=== PATIENT | female | born 1965 | race African-American/Black ===

== ENCOUNTER 2024-05-16 17:22 | Inpatient (IN) | payer OTHER ==
[2024-05-16 18:15] VITALS: BMI 31.7
[2024-05-16] MEDS ORDERED: guaiFENesin 600 MG TABLET.ER (FP) PO PRN (18:51)
[2024-05-16] MEDS ORDERED: ACETAMINOPHEN 325 MG TABLET (FP) PO PRN (18:51)
[2024-05-16] MEDS ORDERED: BENZONATATE 200 MG CAPSULE PO PRN (18:51)
[2024-05-16] MEDS ORDERED: BENZOCAINE/MENTHOL (CHLORASEPTIC ) LOZENGE MM PRN (18:51)
[2024-05-16] MEDS ORDERED: IBUPROFEN 600 MG TABLET (FP) PO PRN (18:51)
[2024-05-16] MEDS ORDERED: hydrOXYzine PAMOATE 25 MG CAPSULE (FP) PO PRN (18:51)
[2024-05-16] MEDS ORDERED: IBUPROFEN 400 MG TABLET (FP) PO PRN (18:51)
[2024-05-16] MEDS ORDERED: LOPERAMIDE HCL 2 MG CAPSULE PO PRN (18:51)
[2024-05-16] MEDS ORDERED: P-EPHED 60MG/TRIPROLIDI 2.5MG TABLET PO PRN (18:51)
[2024-05-16] MEDS ORDERED: MAG HYDROX/AL HYDROX/SIMETH 30 ML UNIT-DOSE CUP PO PRN (18:51)
[2024-05-16] MEDS: THIAMINE 100 MG TABLET PO SCH (21:37)
[2024-05-16] MEDS: MELATONIN 5 MG TABLETS PO SCH (21:37)
[2024-05-16] MEDS: GABAPENTIN 300 MG CAPSULE PO SCH (21:37)
[2024-05-16] MEDS: TUBERCULIN PPD 5 TU/0.1ML SYRINGE (IN PATIENT USE ONLY) ID ONE (22:04)
[2024-05-16] MEDS: SODIUM BICARBONATE 650 MG TABLET PO SCH (22:26)
[2024-05-17] MEDS: LEVOTHYROXINE NA 50 MCG TABLET (FP) PO SCH (06:04)
[2024-05-17] MEDS: SEVELAMER CARBONATE 800 MG TAB (FP) PO SCH (07:19)
[2024-05-17] MEDS ORDERED: SEVELAMER CARBONATE 800 MG TAB (FP) PO SCH ×2 (10:00)
[2024-05-17] MEDS: PRENATAL VITAMINS W/ FOLIC ACID TABLET (FP) PO SCH (10:20)
[2024-05-17] MEDS: amLODIPine BESYLATE 10 MG TABLET (FP) PO SCH (10:20)
[2024-05-17 12:10] LABS: POTASSIUM 3.7 mmol/L (3.5-5.1)
[2024-05-17 12:14] LABS: HEMATOCRIT 27.1 % (32.4-45.2); MCH 29.3 pg (25.7-33.7); MCHC 33.2 g/dl (32.0-36.0); MEAN PLT VOLUME 9.8 fl (7.5-11.1); PLATELET COUNT 137 10^3/uL (134-434); RBC 3.08 M/mm3 (3.60-5.2); RDW 13.7 % (11.6-15.6); WHITE BLOOD COUNT 6.1 K/mm3 (4.0-10.0)
[2024-05-17 12:33] LABS: ALBUMIN 3.8 g/dl (3.4-5.0); CALCIUM 8.9 mg/dL (8.5-10.1)
[2024-05-17 12:35] LABS: BLOOD UREA NITROGEN 36.9 mg/dL (7-18)
[2024-05-17 12:37] LABS: CREATININE 4.4 mg/dL (0.55-1.3)
[2024-05-17 12:38] LABS: BILIRUBIN,TOTAL 0.3 mg/dL (0.2-1); TOT PROT 7.2 g/dl (6.4-8.2)
[2024-05-17 18:49] LABS: EPI CELLS 13 /uL (0-25.1); HYALINE CASTS 0 /uL (0-3.1); PH,URINE 6.5 (5.0-8.0); URINE APPEARANCE CLEAR; URINE BACTERIA 225 /uL (0-1359); URINE BILIRUBIN NEGATIVE (NEGATIVE); URINE COLOR YELLOW; URINE GLUCOSE (UA) TRACE (NEGATIVE); URINE KETONE NEGATIVE (NEGATIVE); URINE LEUK ESTERASE NEGATIVE (NEGATIVE); URINE NITRITE NEGATIVE (NEGATIVE); URINE PROTEIN 2+ (NEGATIVE); URINE RBC 2 /uL (0-23.9); URINE UROBILINOGEN 0.2 mg/dL (0.2-1.0); URINE WBC 18 /uL (0-25.8)
[2024-05-18] MEDS: MAGNESIUM HYDROX 2400MG/30ML ORAL SUSPENSION 30 ML CUP PO PRN (12:59)
[2024-05-19] MEDS: LEVOTHYROXINE NA 25 MCG TABLET (FP) PO SCH (06:01)
[2024-05-19] MEDS: POLYETHYLENE GLYCOL (HEALTHYLAX) 3350 17 GM PACKET PO PRN (18:44)
[2024-05-22] MEDS: DOCUSATE SODIUM 100 MG CAPSULE (FP) PO SCH (10:07)
[2024-05-23] MEDS: HYDROCORTISONE ACETATE 25 MG/SUPP.RECT RC SCH (13:13)
[2024-05-23] MEDS: HYDROCORTISONE 2.5% TOPICAL CREAM 30 GM TUBE TP SCH (15:59)
[2024-05-24] MEDS: NALTREXONE HCL 50 MG TABLET PO ONE (10:13)
[2024-05-24 13:33] LABS: INR 0.89 (0.83-1.09); PROTHROMBIN TIME (PATIENT) 10.3 SEC (9.7-13.0)
[2024-05-24 13:36] LABS: MAGNESIUM 2.8 mg/dL (1.8-2.4)
[2024-05-25] MEDS: NALTREXONE HCL 50 MG TABLET PO SCH (10:17)
[2024-05-25] MEDS: LACTULOSE 20 GM/30 ML UDC (FOR ORAL USE ONLY) PO SCH (10:18)
[2024-05-25] MEDS ORDERED: WITCH HAZEL 50% (TUCKS) 40 PAD/JAR PAD TP PRN (14:48)
[2024-05-25] MEDS: HYDROCORTISONE 2.5% TOPICAL CREAM 30 GM TUBE TP PRN (21:51)
[2024-05-25] MEDS: PHENYLEPHRINE HCL/COCOA BUTTER 1 EACH SUPP.RECT RC SCH (21:51)
[2024-05-30] MEDS: ACETAMINOPHEN 325 MG TABLET (FP) PO ONE (01:43)
[2024-05-30 14:22] LABS: CALCIUM 8.6 mg/dL (8.5-10.1)
[2024-05-30 14:23] LABS: ALBUMIN 3.8 g/dl (3.4-5.0); BLOOD UREA NITROGEN 35.4 mg/dL (7-18)
[2024-05-30 14:25] LABS: CREATININE 4.1 mg/dL (0.55-1.3)
[2024-05-30 14:26] LABS: TOT PROT 8.1 g/dl (6.4-8.2)
[2024-05-30 14:27] LABS: BILIRUBIN,TOTAL 0.5 mg/dL (0.2-1)
[2024-05-30] MEDS: LIDOCAINE 4% PATCH TP SCH (18:18)
[2024-05-30] MEDS: LIDOCAINE PATCH REMOVAL MC SCH (21:21)
[2024-05-30] MEDS: METHYL SALICYLATE/MENTHOL OINT 30 GM TUBE TP SCH (21:24)
[2024-06-01 20:17] LABS: POTASSIUM 4.3 mmol/L (3.5-5.1)
[2024-06-01 20:20] LABS: ALBUMIN 3.7 g/dl (3.4-5.0); BLOOD UREA NITROGEN 38.2 mg/dL (7-18)
[2024-06-01 20:23] LABS: CREATININE 4.5 mg/dL (0.55-1.3)
[2024-06-01 20:25] LABS: BILIRUBIN,TOTAL 0.4 mg/dL (0.2-1); TOT PROT 7.9 g/dl (6.4-8.2)
[2024-06-02] MEDS ORDERED: LEVOTHYROXINE NA 25 MCG TABLET (FP) PO SCH (09:20)
[2024-06-03] MEDS: LEVOTHYROXINE NA 25 MCG TABLET (FP) PO SCH (06:04)
[2024-06-05 06:40] VITALS: RESP 18
[2024-06-05] MEDS: NALTREXONE MICROSPHERES (VIVITROL) 380 MG DISP.SYRIN IM ONE (12:56)
[2024-06-06 07:17] VITALS: TEMP 97.7
[2024-06-06 09:43] VITALS: BP 150/72; PULSE 85
== END 2024-06-06 10:22 | disposition home or self-care (01) | DRG 895 ==
LOC: YASAS 17:22 → Y5N 19:21
PROVIDERS: ADMIT Allergy & Immunology; ATTEND Psychiatry & Neurology Pain Medicine
PROC: HZ42ZZZ Group Counseling for Substance Abuse Treatment, Cognitive-Behavioral (ICD-10-PCS; principal; 2024-05-16)
DX: F10.20 Alcohol dependence, uncomplicated (principal); F41.9 Anxiety disorder, unspecified; I10 Essential (primary) hypertension; I25.10 Atherosclerotic heart disease of native coronary artery without angina pectoris; N18.9 Chronic kidney disease, unspecified; E03.9 Hypothyroidism, unspecified; D64.9 Anemia, unspecified; R25.2 Cramp and spasm; S93.402A Sprain of unspecified ligament of left ankle, initial encounter; X50.1XXA Overexertion from prolonged static or awkward postures, initial encounter; Y93.01 Activity, walking, marching and hiking; Y92.230 Patient room in hospital as the place of occurrence of the external cause; K64.8 Other hemorrhoids; Z95.5 Presence of coronary angioplasty implant and graft; Z95.0 Presence of cardiac pacemaker
CPT/HCPCS: 36415; 73610-TC-LT-FY; 73630-TC-LT; 80053; 80305; 81003; 81025; 82140; 82652; 82962; 83735; 84443; 85027; 85610; 86780; 87811; 93005; 93010; J2315